=== PATIENT | female | born 1990 | race Caucasian/White ===

== ENCOUNTER 2017-02-10 18:37 | Emergency (ER) | payer OTHER ==
[2017-02-10 18:57] VITALS: BP 125/81; PULSE 97; RESP 18; TEMP 98; O2SAT 100
== END 2017-02-10 19:27 | disposition home or self-care (01) ==
LOC: ED 18:37
DX: O26.859 Spotting complicating pregnancy, unspecified trimester (principal)
CPT/HCPCS: 99283

== ENCOUNTER 2017-09-30 06:50 | Inpatient (IN) | payer MEDICAID, OTHER ==
[2017-09-30] MEDS ORDERED: LACTATED RINGERS 1,000 ML IV PRN (08:00)
[2017-09-30] MEDS ORDERED: CARBOPROST 250 MCG/ML SOL IM PRN (09:08)
[2017-09-30] MEDS ORDERED: METHYLERGONOVINE MALEATE 0.2 MG/ML SOL IM PRN (09:08)
[2017-09-30] MEDS ORDERED: SODIUM CHLORIDE 0.9% FLUSH 10 ML SOL IV PRN (09:08)
[2017-09-30] MEDS ORDERED: OXYTOCIN 10000 MU/ML SOL IM PRN (09:08)
[2017-09-30] MEDS ORDERED: FENTANYL 100MCG/2ML SOL IV PRN (09:08)
[2017-09-30] MEDS ORDERED: MEPIVACAINE HCL 1% MPF 30 ML/VIAL SOL INFIL PRN (09:08)
[2017-09-30] MEDS ORDERED: SODIUM CHLORIDE 0.9% FLUSH 10 ML SOL IV SCH (09:15)
[2017-09-30] MEDS ORDERED: TERBUTALINE SULFATE 1 MG/ML SOL SC PRN (10:36)
[2017-09-30] MEDS ORDERED: OXYTOCIN 10000 MU/ML 20,000 MU in LACTATED RINGERS 1,000 ML IV SCH (10:45)
[2017-09-30] MEDS ORDERED: LACTATED RINGERS 1,000 ML IV SCH (10:45)
[2017-09-30] MEDS ORDERED: OXYTOCIN 10000 MU/ML SOL ONE (11:33)
[2017-09-30] MEDS ORDERED: LACTATED RINGERS 1,000 ML ONE (11:33)
[2017-09-30 15:14] LABS: BASOPHILS % (AUTO) 0 % (0-3); EOSINOPHILS % (AUTO) 1 % (0-9); HEMATOCRIT 38 % (35-47); HEMOGLOBIN 12.7 gm/dl (12.0-15.5); LYMPHOCYTES % (AUTO) 19.93 % (10-50); MEAN CORPUSCULAR HEMOGLOBIN 30.4 pg (27.0-32.0); MEAN CORPUSCULAR HGB CONC 33.4 gm/dl (32.0-36.0); MEAN CORPUSCULAR VOLUME 91 fL (81-99); MONOCYTES % (AUTO) 6.4 % (0-12); NEUTROPHILS % (AUTO) 72.6 % (37-80)
[2017-09-30] MEDS ORDERED: FLEET ENEMA PR PRN (15:52)
[2017-09-30] MEDS ORDERED: WITCH HAZEL 1 EA PAD TOP PRN (15:52)
[2017-09-30] MEDS ORDERED: BISACODYL 10 MG SUP PR PRN (15:52)
[2017-09-30] MEDS ORDERED: BENZOCAINE/MENTHOL 1 SPR TOP PRN (15:52)
[2017-09-30] MEDS ORDERED: APAP/HYDROCODONE 325/5 TAB PO PRN (15:52)
[2017-09-30] MEDS ORDERED: METHYLERGONOVINE MALEATE 0.2 MG TAB PO PRN (15:52)
[2017-09-30] MEDS ORDERED: TEMAZEPAM 15MG 15 MG CAP PO PRN (15:52)
[2017-09-30] MEDS: IBUPROFEN 600 MG TAB PO PRN ×2 (17:42→23:50)
[2017-09-30] MEDS ORDERED: CALCIUM CARBONATE 1177 MG PO PRN (20:10)
[2017-09-30] MEDS: DOCUSATE SODIUM 100 MG SGL PO SCH (21:12)
[2017-09-30] MEDS: SODIUM CHLORIDE 0.9% FLUSH 10 ML SOL IV SCH (23:50)
[2017-10-01] MEDS: IBUPROFEN 600 MG TAB PO PRN ×3 (06:21→22:54)
[2017-10-01] MEDS ORDERED: FAMOTIDINE 20 MG TAB ONE (06:24)
[2017-10-01] MEDS: FAMOTIDINE 20 MG TAB PO SCH (06:25)
[2017-10-01] MEDS: SODIUM CHLORIDE 0.9% FLUSH 10 ML SOL IV SCH ×2 (06:26→17:59)
[2017-10-01] MEDS: FOLIC ACID 1 MG TAB PO SCH (09:49)
[2017-10-01] MEDS: MULTIVITAMIN2 1 EA TAB PO SCH (09:49)
[2017-10-01] MEDS: DOCUSATE SODIUM 100 MG SGL PO SCH ×2 (09:49→20:43)
[2017-10-01] MEDS: VALACYCLOVIR HYDROCHLORIDE 1 GM TAB PO SCH (16:45)
[2017-10-02] MEDS ORDERED: FAMOTIDINE 20 MG TAB ONE (08:35)
[2017-10-02] MEDS: MULTIVITAMIN2 1 EA TAB PO SCH (08:43)
[2017-10-02] MEDS: FAMOTIDINE 20 MG TAB PO SCH (08:43)
[2017-10-02] MEDS: FOLIC ACID 1 MG TAB PO SCH (08:43)
[2017-10-02 08:51] VITALS: BP 115/77; PULSE 54; RESP 16; TEMP 98; O2SAT 97
[2017-10-02] MEDS: DOCUSATE SODIUM 100 MG SGL PO SCH (15:07)
[2017-10-02] MEDS: VALACYCLOVIR HYDROCHLORIDE 1 GM TAB PO SCH (15:08)
== END 2017-10-02 12:05 | disposition home or self-care (01) | DRG 560 ==
LOC: OBSVTOIN 06:50 → OB 06:50
PROVIDERS: ADMIT Family Medicine; ATTEND Family Medicine
PROC: 10E0XZZ Delivery of Products of Conception, External Approach (ICD-10-PCS; principal; 2017-09-30)
PROC: 6A550ZT Pheresis of Cord Blood Stem Cells, Single (ICD-10-PCS; 2017-09-30)
PROC: 0U7C7ZZ Dilation of Cervix, Via Natural or Artificial Opening (ICD-10-PCS; 2017-09-30)
PROC: 3E033VJ Introduction of Other Hormone into Peripheral Vein, Percutaneous Approach (ICD-10-PCS; 2017-09-30)
DX: O80 Encounter for full-term uncomplicated delivery (principal); Z37.0 Single live birth; Z3A.40 40 weeks gestation of pregnancy
CPT/HCPCS: 36415; 59025; 85018; 85025; J0670; J2590; A9270-GY